=== PATIENT | female | born 1995 | race Caucasian/White ===

== ENCOUNTER → 2017-06-16 | Emergency (ER) | payer OTHER ==
[~2017-06-16] VITALS: Ht 170.2 cm; Wt 64.9 kg
[~2017-06-16] MED LIST: MEDROLPACK PO; VALACYCLOVIR1000 MG PO
== END | disposition home or self-care (01) ==
LOC: ER 12:04
DX: G51.0 Bell's palsy (principal)

== ENCOUNTER 2020-09-17 22:46 | Outpatient (CLI) | payer OTHER ==
[~2020-09-17 22:46] MED LIST changes: +PRENA1 TRUE CO1 EACH
== END 2020-09-18 13:16 | disposition home or self-care (01) ==
LOC: OBS/DEL 22:46
PROVIDERS: ATTEND Obstetrics & Gynecology
DX: O23.43 Unspecified infection of urinary tract in pregnancy, third trimester (principal); Z3A.33 33 weeks gestation of pregnancy

== ENCOUNTER 2020-10-17 13:45 | Inpatient (IN) | payer OTHER ==
[~2020-10-17] VITALS: Ht 170.2 cm; Wt 86.2 kg
== END 2020-10-31 14:24 | disposition home or self-care (01) | DRG 807 ==
LOC: LDR 10-29 01:33 → SURG-SUITE 10-29 01:33 → OB/GYN 10-30 13:45 → SURG-SUITE 10-31 14:24
PROVIDERS: ADMIT Obstetrics & Gynecology; ATTEND Obstetrics & Gynecology
PROC: 10E0XZZ Delivery of Products of Conception, External Approach (ICD-10-PCS; principal; 2020-10-29)
PROC: 0UQMXZZ Repair Vulva, External Approach (ICD-10-PCS; 2020-10-29)
PROC: 4A1HXFZ Monitoring of Products of Conception, Cardiac Rhythm, External Approach (ICD-10-PCS; 2020-10-29)
DX: O71.82 Other specified trauma to perineum and vulva (principal); Z37.0 Single live birth; Z3A.39 39 weeks gestation of pregnancy; Z86.16 Personal history of COVID-19

== ENCOUNTER 2020-10-28 05:18 | Outpatient (CLI) | payer OTHER | END 2020-10-28 09:46 | disposition home or self-care (01) | LOC: OBS/DEL 05:18 | PROVIDERS: ATTEND Obstetrics & Gynecology | DX: O47.1 False labor at or after 37 completed weeks of gestation (principal); Z3A.39 39 weeks gestation of pregnancy ==

== ENCOUNTER 2023-01-28 11:47 | Emergency (ER) | payer OTHER ==
[~2023-01-28] VITALS: Ht 170.2 cm; Wt 75.3 kg
[2023-01-28 12:52] LABS: HEMATOCRIT 33.5 % (36.0-45.00); HEMOGLOBIN 10.7 g/dL (12.0-15.00); MEAN CELL VOLUME 80.7 fL (80.00-100.00); MEAN CORPUSCULAR HEMOGLOBIN 25.7 pg (27.00-32.0); MEAN CORPUSCULAR HGB CONC 31.9 g/dl (32.0-36.0); PLATELET COUNT 218 K/uL (150-450); RED BLOOD COUNT 4.15 M/uL (4.00-6.00); RED CELL DISTRIBUTION WIDTH 17.4 % (11.5-14.5)
[2023-01-28 13:18] LABS: PH,URINE 6.5; URINE BILIRRUBIN NEGATIVE (NEGATIVE); URINE BLOOD NEGATIVE; URINE GLUCOSE NEGATIVE (NEGATIVE); URINE LEUKOCYTE NEGATIVE; URINE NITRATE NEGATIVE; URINE PROTEIN NEGATIVE (NEGATIVE); URINE UROBILINOGEN 0.2 E.U./dl
[2023-01-28 13:19] LABS: CALCIUM 8.6 mg/dL (8.5-10.1); CREATININE SERUM 0.6 mg/dL (0.55-1.02); GFR 119.04; POTASSIUM 4.3 mEq/L (3.5-5.1)
[2023-01-28 13:19] LABS: URINE EPITHELIAL CELLS 78.9 uL (0.0-38.8); URINE RBC 7.3 uL (0.0-20.8); URINE WBC 8.9 uL (0.0-23.2)
[2023-01-28 13:20] LABS: URINE APPEARANCE CLEAR; URINE COLOR YELLOW
== END 2023-01-28 15:33 | disposition home or self-care (01) ==
LOC: ER 11:47
PROVIDERS: Emergency Medicine
DX: O98.811 Other maternal infectious and parasitic diseases complicating pregnancy, first trimester (principal); Z3A.12 12 weeks gestation of pregnancy; K52.89 Other specified noninfective gastroenteritis and colitis

== ENCOUNTER 2023-02-17 14:01 | Outpatient (CLI) | payer OTHER | END 2023-02-17 14:08 | disposition home or self-care (01) | LOC: PRENATAL 14:01 | PROVIDERS: ATTEND Obstetrics & Gynecology Maternal & Fetal Medicine | DX: O26.849 Uterine size-date discrepancy, unspecified trimester (principal); Z36.0 Encounter for antenatal screening for chromosomal anomalies; Z3A.16 16 weeks gestation of pregnancy ==

== ENCOUNTER → 2023-03-16 14:40 | Outpatient (CLI) | payer OTHER | END | disposition home or self-care (01) | LOC: PRENATAL 14:40 | PROVIDERS: ATTEND Obstetrics & Gynecology Maternal & Fetal Medicine | DX: O35.3XX0 Maternal care for (suspected) damage to fetus from viral disease in mother, not applicable or unspecified (principal); O44.00 Complete placenta previa NOS or without hemorrhage, unspecified trimester; Z3A.20 20 weeks gestation of pregnancy ==

== ENCOUNTER 2023-04-28 11:40 | Emergency (ER) | payer OTHER ==
[~2023-04-28] VITALS: Ht 170.2 cm; Wt 77.1 kg
== END 2023-04-28 14:48 | disposition home or self-care (01) ==
LOC: ER 11:40
DX: R53.81 Other malaise (principal); J06.9 Acute upper respiratory infection, unspecified; Z20.822 Contact with and (suspected) exposure to COVID-19; Z3A.26 26 weeks gestation of pregnancy

== ENCOUNTER 2023-05-12 13:56 | Outpatient (CLI) | payer OTHER | END 2023-05-12 13:57 | disposition home or self-care (01) | LOC: PRENATAL 13:56 | PROVIDERS: ATTEND Obstetrics & Gynecology Maternal & Fetal Medicine | DX: O26.849 Uterine size-date discrepancy, unspecified trimester (principal); Z3A.28 28 weeks gestation of pregnancy ==

== ENCOUNTER 2023-06-22 14:21 | Outpatient (CLI) | payer OTHER | END 2023-06-22 14:22 | disposition home or self-care (01) | LOC: PRENATAL 14:21 | PROVIDERS: ATTEND Obstetrics & Gynecology Maternal & Fetal Medicine | DX: O26.849 Uterine size-date discrepancy, unspecified trimester (principal); O36.8199 Decreased fetal movements, unspecified trimester, other fetus; Z3A.34 34 weeks gestation of pregnancy ==